=== PATIENT | female | born 1990 | race Caucasian/White ===

== ENCOUNTER 2019-09-11 11:35 | Emergency (ER) | payer SELFPAY ==
[~2019-09-11] VITALS: Ht 160 cm; Wt 56.7 kg
--- NOTE | 2019-09-11 14:24 | EKG ---
[facility] [address] [facility] [place] [address] Signed Normal sinus rhythm Normal ECG No previous ECGs available Confirmed by JULIUS JONES MD ([id number]) on 09/11/2019 2:23:59 PM Electronically Signed By: JULIUS JONES MD 09/11/19 1424 PATIENT NAME: JIMENEZNETTIE EFRAIN Electrocardiogram DATE OF : 86 PHYSICIAN: JULIUS JONES MD REPORT #: [id number] REPORT IS CONFIDENTIAL AND NOT TO BE RELEASED WITHOUT AUTHORIZATION
== END 2019-09-11 14:20 | disposition home or self-care (01) ==
LOC: ED 11:35
DX: F41.0 Panic disorder [episodic paroxysmal anxiety] (principal); E86.0 Dehydration
CPT/HCPCS: 80053; 81001; 83735; 84443; 84703; 85025; 93005; 93010; 96374; 99285-25; J2405; J7030